=== PATIENT | female | born 2000 ===

== ENCOUNTER 2021-01-28 15:21 | Emergency (ER) | payer OTHER ==
[~2021-01-28] VITALS: Ht 162.6 cm; Wt 54.4 kg
[2021-01-28] MEDS ORDERED: ZITHROMAX200 MG PO (18:49)
[2021-01-28] MEDS ORDERED: CORTISPORIN EAR10 M1 OPHT (18:49)
== END 2021-01-28 19:15 | disposition home or self-care (01) ==
LOC: ER 15:21
DX: J00 Acute nasopharyngitis [common cold] (principal); H60.8X2 Other otitis externa, left ear; B34.9 Viral infection, unspecified; B96.0 Mycoplasma pneumoniae [M. pneumoniae] as the cause of diseases classified elsewhere; Z11.52 Encounter for screening for COVID-19

== ENCOUNTER 2021-03-05 21:29 | Emergency (ER) | payer OTHER ==
[~2021-03-05] VITALS: Ht 162.6 cm; Wt 57.6 kg
[~2021-03-05 21:29] MED LIST: CORTISPORIN EAR10 M1 OPHT; ZITHROMAX200 MG PO
== END 2021-03-06 01:11 ==
LOC: ER 21:29
DX: O20.0 Threatened abortion (principal); Z3A.01 Less than 8 weeks gestation of pregnancy